=== PATIENT | male | born 1995 | race Two or more races ===

== ENCOUNTER 2018-08-15 15:33 | Emergency (ER) | payer SELFPAY ==
[2018-08-15] MEDS ORDERED: LORAZEPAM 1 MG TABLET PO ONE (16:25)
[2018-08-15] MEDS ORDERED: OLANZAPINE 5 MG TAB.RAPDIS PO ONE ×2 (16:25→22:04)
[2018-08-15] MEDS ORDERED: LORAZEPAM INJ 2 MG/1 ML VIAL IM ONE (16:38)
[2018-08-15] MEDS ORDERED: HALOPERIDOL LACTATE INJ 5 MG/1 ML VIAL IM ONE (16:38)
[2018-08-15] MEDS ORDERED: BENZTROPINE MESYLATE INJ 2 MG/2 ML AMPULE IM ONE (16:38)
[2018-08-15 17:00] LABS: ABSOLUTE LYMPHOCYTES (AUTO) 1.7 10^3/uL (0.5-4.7); ABSOLUTE MONOCYTES (AUTO) 0.6 10^3/uL (0.1-1.4); ABSOLUTE NEUT (AUTO) 5.1 10^3/uL (1.7-8.2); BASOPHILS % (AUTO) 0.7 % (0-2); EOSINOPHILS % (AUTO) 0.1 % (0-6); HEMOGLOBIN 15.4 g/dL (13.5-17.0); LYMPHOCYTES % (AUTO) 22.5 % (13-45); MEAN CORPUSCULAR HEMOGLOBIN 33.1 pg (27.0-33.4); MEAN CORPUSCULAR HGB CONC 35.9 g/dL (32.0-36.0); MEAN CORPUSCULAR VOLUME 92 fl (80-97); MONOCYTES % (AUTO) 8.7 % (3-13); PLATELET COUNT 308 10^3/uL (150-450); RED BLOOD COUNT 4.66 10^6/uL (4.35-5.55); RED CELL DISTRIBUTION WIDTH 12.7 % (11.5-14.0); TOTAL CELLS COUNTED % (AUTO) 100 %; WHITE BLOOD COUNT 7.5 10^3/uL (4.0-10.5)
[2018-08-15 17:23] LABS: ALANINE AMINOTRANSFERASE 41 U/L (21-72); ALBUMIN 4.9 g/dL (3.5-5.0); ALKALINE PHOSPHATASE 62 U/L (38-126); ANION GAP 14 (5-19); ASPARTATE AMINO TRANSFERASE 41 U/L (17-59); BILIRUBIN,DIRECT 0.4 mg/dL (0.0-0.4); BILIRUBIN,TOTAL 1.4 mg/dL (0.2-1.3); BLOOD UREA NITROGEN 11 mg/dL (7-20); CARBON DIOXIDE 26 mmol/L (22-30); CHLORIDE 103 mmol/L (98-107); GLUCOSE 105 mg/dL (75-110); POTASSIUM 3.3 mmol/L (3.6-5.0); SODIUM 143.1 mmol/L (137-145); TOTAL PROTEIN 8.1 g/dL (6.3-8.2)
[2018-08-15 17:26] LABS: ACETAMINOPHEN < 10 ug/mL (10-30); ALCOHOL < 10 mg/dL (NONE DETECTED); SALICYLATE < 1.0 mg/dL (2.0-20.0)
[2018-08-15 17:48] LABS: APPEARANCE,URINE CLOUDY; BILIRUBIN,URINE NEGATIVE (NEGATIVE); COLOR,URINE YELLOW; GLUCOSE, URINE NEGATIVE (NEGATIVE); KETONES,URINE 80 mg/dL (NEGATIVE); LEUKOCYTE ESTERASE,URINE NEGATIVE (NEGATIVE); NITRITE,URINE NEGATIVE (NEGATIVE); PROTEIN,URINE 30 mg/dL (NEGATIVE); URINE SPECIFIC GRAVITY 1.028
[2018-08-15 17:59] LABS: URINE AMPHETAMINES SCREEN NEGATIVE; URINE BARBITURATES SCREEN NEGATIVE; URINE BENZODIAZEPINES SCREEN NEGATIVE; URINE COCAINE SCREEN NEGATIVE; URINE MARIJUANA (THC) SCREEN UNCONFIRMED POSITIVE; URINE METHADONE SCREEN NEGATIVE; URINE PHENCYCLIDINE SCREEN NEGATIVE
--- NOTE | 2018-08-15 22:42 | ER Document Report ---
ED General - General Chief Complaint: Psych Problem Stated Complaint: PSYCH EVAL Time Seen by Provider: 08/15/18 15:58 - HPI Patient complains to provider of: Psychiatric evaluation Notes: Patient coming in for evaluation patient works at a local [facility] apparently was not showing up to work for the last 2 days was found paranoid and combative was brought to the ER in the custody of local law enforcement. Patient apparently has not been taking any of his medications. Upon further questioning the patient states that he takes medications for asthma does not have any psychiatric history denies PTSD schizophrenia. Patient is very agitated stating that he wants the veterans to be taking better care of that he is appalled at the care they are receiving a refuses to comply with any further treatment here until all the veterans are brought in all the veterans are treated at our hospital appropriately also states that he does not talk to his mother that he will end up killing himself. Patient states suicidal thoughts ongoing for a number years however is never acted on them. Otherwise patient pacing the room however easily redirected. - Related Data Allergies/Adverse Reactions: No Known Allergies Allergy (Unverified 08/16/18 20:35) Past Medical History - Social History Smoking Status: Unknown if Ever Smoked Family History: Reviewed & Not Pertinent Patient has suicidal ideation: Yes Patient has homicidal ideation: Yes Renal/ Medical History: Denies: Hx Peritoneal Dialysis Review of Systems - Review of Systems Constitutional: No symptoms reported EENT: No symptoms reported Cardiovascular: No symptoms reported Respiratory: No symptoms reported Gastrointestinal: No symptoms reported Genitourinary: No symptoms reported Male Genitourinary: No symptoms reported Musculoskeletal: No symptoms reported Skin: No symptoms reported Hematologic/Lymphatic: No symptoms reported Neurological/Psychological: Other - Paranoia -: Yes All other systems reviewed and negative Physical Exam - Vital signs Vitals: Temp Pulse Resp BP Pulse Ox 99.5 F 83 16 152/82 H 99 08/15/18 15:40 08/15/18 15:40 08/15/18 15:40 08/15/18 15:40 08/15/18 15:40 Interpretation: Normal - General General appearance: Appears well, Alert - HEENT Head: Normocephalic, Atraumatic Eyes: Normal Pupils: PERRL - Respiratory Respiratory status: No respiratory distress Chest status: Nontender Breath sounds: Normal Chest palpation: Normal - Cardiovascular Rhythm: Regular Heart sounds: Normal auscultation Murmur: No - Abdominal Inspection: Normal Distension: No distension Bowel sounds: Normal Tenderness: Nontender Organomegaly: No organomegaly - Back Back: Normal, Nontender - Extremities General upper extremity: Normal inspection, Nontender, Normal color, Normal ROM , Normal temperature General lower extremity: Normal inspection, Nontender, Normal color, Normal ROM , Normal temperature, Normal weight bearing. No: Michael's sign - Neurological Neuro grossly intact: Yes Cognition: Normal Orientation: AAOx4 [place] Coma Scale Eye Opening: Spontaneous Josue Coma Scale Verbal: Oriented Josue Coma Scale Motor: Obeys Commands Josue Coma Scale Total: 15 Speech: Normal Motor strength normal: LUE, RUE, LLE, RLE Sensory: Normal - Psychological Associated symptoms: Aggressive, Agitated, Angry, Paranoid - Skin Skin Temperature: Warm Skin Moisture: Dry Skin Color: Normal Course - Re-evaluation Re-evalutation: 08/15/18 22:39 Patient very aggressive towards staff other than myself. Patient upon interview agrees that he will need something to calm himself down and agrees to take medication however when this is ordered and the nurses presented to the patient patient becomes agitated and noncompliant. Patient refused any blood draws lab draws therefore the patient was given medication today the situation along with restraints. Patient laboratory studies not show any acute pathology at this time with slight low potassium which will replace orally once he wakes up. Currently waiting for psychiatric evaluation patient is placed on IVC paperwork - Vital Signs Vital signs: Temp Pulse Resp BP Pulse Ox 98 F 56 L 18 133/72 H 98 08/17/18 22:30 08/17/18 22:30 08/17/18 22:30 08/17/18 22:30 08/17/18 22:30 - Laboratory Result Diagrams: 08/15/18 16:50 08/15/18 16:50 Laboratory results interpreted by me: 08/15/18 08/15/18 16:50 17:15 Potassium 3.3 L Total Bilirubin 1.4 H Urine Protein 30 H Urine Ketones 80 H Urine Blood SMALL H Urine Urobilinogen 2.0 H Salicylates < 1.0 L Acetaminophen < 10 L Discharge - Discharge Clinical Impression: Suicidal ideation, Acute paranoia Disposition: PSYCH HOSP/UNIT
--- NOTE | 2018-08-16 09:00 | EKG REPORT ---
SEVERITY:- ABNORMAL ECG - SINUS ARRHYTHMIA VS BLOCKED APC PROBABLE LEFT VENTRICULAR HYPERTROPHY BORDERLINE PROLONGED QT INTERVAL : Confirmed by: Pascual Mills 16-Aug-2018 08:59:32
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
--- NOTE | 2018-08-16 11:00 | ER Document Report ---
Doctor's Note Notes: 08/16/18 10:58 Rounds: Chart reviewed and patient sleeping and did not awaken with me calling his name twice. He had fairly high doses of sedative medications last night and probably is still having the effects of that medication. Nurse reports the patient has been up into the bathroom and has been calm and cooperative. Patient is being evaluated for acute psychosis and agitation and paranoia. Labs showed positive for marijuana, potassium 3.3, is being given 40 mEq of KCl p.o., and high ketones in his urine. Will encourage fluids. Vital signs are all essentially normal. Arrangements are being made to have the patient's parents come pick him up. Patient appears to be medically stable for transfer or discharge. Ghulam Duffy MD
[2018-08-16] MEDS ORDERED: POTASSIUM CHLORIDE 10 MEQ CAPSULE.ER PO ONE (11:01)
[2018-08-16] MEDS ORDERED: POTASSIUM CHLORIDE 20 MEQ/15 ML UDCUP PO ONE (11:01)
[2018-08-16] MEDS: BUSPIRONE HCL 10 MG TABLET PO SCH ×2 (14:51→21:21)
[2018-08-16] MEDS: VENLAFAXINE HCL 37.5 MG CAP.SR.24H PO SCH (17:44)
[2018-08-17] MEDS: VENLAFAXINE HCL 37.5 MG CAP.SR.24H PO SCH ×2 (08:59→18:16)
[2018-08-17] MEDS: BUSPIRONE HCL 10 MG TABLET PO SCH ×2 (09:00→22:26)
--- NOTE | 2018-08-17 09:29 | ER Document Report ---
Doctor's Note Notes: 08/17/18 09:25 As the rounding physician this AM, I assessed the patient's labs, vitals, and records. No concerning findings this morning. Patient denies any acute complaints. Patient is cleared for disposition by psychiatry. We are awaiting the father's arrival. His pain was delayed and will not be here until later on this evening. Patient needs to be discharged to his father to assure that he has no access to firearms in the house. Impression\plan: Patient is recommended to continue under IVC. Patient is demonstrating some disorganized and illogical thought processes. While patient is currently euthymic, upon arrival he was manic and required both medication and physical restraints for his safety and the safety of [facility] staff. There is also concern the patient has a weapon in his home and with his insight, judgment , and impulse control being poor he is a danger to himself. Patient will be reevaluated. Dr. Salvador was consulted and the care and management of this patient; attending physicians in agreement with recommendations and disposition. PHYSICAL EXAMINATION: GENERAL: Well-appearing, well-nourished and in no acute distress. HEAD: Atraumatic, normocephalic. EYES: Pupils equal round extraocular movements intact, conjunctiva are normal. ENT: Nares patent NECK: Normal range of motion LUNGS: No respiratory distress Musculoskeletal: Normal range of motion NEUROLOGICAL: Normal speech, normal gait. PSYCH: Normal mood, normal affect. SKIN: Warm, Dry, normal turgor, no rashes or lesions noted. 08/17/18 11:10
--- NOTE | 2018-08-17 11:04 | PSYCHOLOGICAL NOTE ---
Psych Note - Psych Note Psych Note: Reason for Consult: manic/psychosis patient presents to the ER with . states patient works with the [place] but has not been coming to work the past few days. states was told he has been not taking his regular medications x2 days but is unsure of what those are. states patient insisted on being handcuffed and placed in the back of the police car. patient appears anxious and paranoid. Clinician conducted check-in with patient Patient reports that he has been under a lot of stress. He states that he knows he was acting erratic and reports that he was trying to get things to go viral about that [place] and [place]. When asked about asking people to sign paper he states that he understood he was trying to get people to sign his time sheet because he was trying to volunteer. 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 Behavior health team received contact from patient's mother to inform us of the patient's father's flight has been delayed and he will not arrive to [place] until almost 11 PM tonight. Behavior health team agrees to keep patient until tomorrow morning to have patient release to his father after his father is able to secure the weapon in the patient's home. Medication recommendations per [facility]'s contracted psychiatrist Dr. Lizette FLORES are as follows Effexor 37.5 mg twice daily BuSpar 5 mg every morning and 10 mg nightly 309.9 (F43.20) unspecified adjustment disorder per history provided by the [place] Impression\plan: Patient is recommended to continue under IVC. Patient's presentation is much improved however demonstrating some disorganized and illogical thought processes (ie trying to get things to go viral). While patients delusions do not cause himself or others harm at this time there is concern the patient still has a weapon in the home. Patient's father will be flying into [place] this evening at approximately 11 PM. Current discharge plan is to discharge the patient to his father's care after the patient's weapon has been secured. Patient will be reevaluated. Dr. Salvador was consulted and the care and management of this patient; attending physicians in agreement with recommendations and disposition.
[2018-08-18] MEDS: BUSPIRONE HCL 10 MG TABLET PO SCH (07:55)
[2018-08-18 08:01] VITALS: BP 137/78
[2018-08-18] MEDS ORDERED: VENLAFAXINE HCL 37.5 MG CAP.SR.24H PO SCH (10:00)
--- NOTE | 2018-08-18 10:04 | ER Document Report ---
Doctor's Note Notes: 08/18/18 10:03 Rounds: Chart reviewed. Patient interviewed. Patient seems much more functional than when I saw him 2 days ago. Very pleasant and interactive. Patient's father has just arrived here from [place] and is going to take this patient back to [place]. Prescriptions are being written for him to have the Effexor and BuSpar. Vital signs are all normal. Lab studies were essentially normal. Patient appears to be medically stable for transfer or discharge. Mental health has assessed the patient and feels he can be discharged to the care of his father. Ghulam Duffy MD
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
== END 2018-08-18 10:12 | disposition home or self-care (01) ==
LOC: ER 15:33
DX: F22 Delusional disorders (principal); R45.851 Suicidal ideations; R45.850 Homicidal ideations; J45.909 Unspecified asthma, uncomplicated; Z91.14 Patient's other noncompliance with medication regimen; Z78.1 Physical restraint status
CPT/HCPCS: 93005; 99285; 96372; 36415; 80307 ×4; 85025; 80053; 81001; 93010; J0515; J3490 ×4; J1630; J2060